=== PATIENT | female | born 1960 | race Caucasian/White ===

== ENCOUNTER → 2016-12-19 | Outpatient (CLI) | payer OTHER ==
--- NOTE | 2016-12-19 15:24 | XR ---
EXAMINATION TYPE: XR hand complete RT DATE OF EXAM: 12/19/2016 3:15 PM CLINICAL HISTORY: Pain first and second fingers with limited range of motion TECHNIQUE: Frontal, lateral and oblique images of the right hand are obtained. COMPARISON: None. FINDINGS: There is no acute fracture/dislocation evident in the right hand. The joint spaces in the right hand appear within normal limits. The overlying soft tissue appears unremarkable. IMPRESSION: There is no acute fracture or dislocation in the right hand. Unremarkable study.
== END ==
LOC: RADXRMAIN 14:48
PROVIDERS: ATTEND Internal Medicine
DX: M79.644 Pain in right finger(s) (principal)

== ENCOUNTER 2017-07-26 07:27 | Day surgery (SDC) | payer OTHER ==
[2017-07-24 15:00] VITALS: BMI 49.0
[~2017-07-26 07:27] MED LIST: LACTATED RINGERS 1,000 ML IV SCH
[2017-07-26 07:38] VITALS: TEMP 97.4
[2017-07-26 07:47] LABS: Glucose,Whole Blood 96 mg/dL (75-99)
[2017-07-26] MEDS ORDERED: PROPOFOL 10 MG/ML 20 ML VIAL IV ONE (07:54)
[2017-07-26] MEDS ORDERED: LACTATED RINGERS 1,000 ML IV ONE (07:54)
--- NOTE | 2017-07-26 07:59 | P.GSHP ---
History of Present Illness H&P Date: 07/26/17 Chief Complaint: epigastric pain, change of bowel habits, constipation this a 57-year-old female referred from Dr. Márquez. Patient presents today for EGD and colonoscopy. She's had issues with epigastric pain and constipation. Past Medical History Past Medical History: Diabetes Mellitus, Eye Disorder, GERD/Reflux, Hypertension , Osteoarthritis (OA) Additional Past Medical History / Comment(s): GLAUCOMA, GASTRIC PARESIS, hx HIATAL HERNIA. CHRONIC BACK PAIN. FREQUENT DIARRHEA, SWELLING RT SIDE OF ABDOMEN. History of Any Multi-Drug Resistant Organisms: None Reported Past Surgical History: Cholecystectomy, Joint Replacement, Tubal Ligation Additional Past Surgical History / Comment(s): ANG FUNDLAPLASTY, ARTHROSCOPY LEFT KNEE, TOTAL LT KNEE(02/2015), MANIPULATION LT KNEE, RT ELBOW WITH SCREW (2013), D&C 07-30-15; EGD 07/31/15 Past Anesthesia/Blood Transfusion Reactions: Motion Sickness, Postoperative Nausea & Vomiting (PONV) Additional Past Anesthesia/Blood Transfusion Reaction / Comment(s): PONV X1. Smoking Status: Former smoker - Past Family History Father Family Medical History: Unable to Obtain Mother Family Medical History: Unable to Obtain Medications and Allergies Home Medications Medication Instructions Recorded Confirmed Type Atenolol 100 mg PO QAM 04/17/14 07/24/17 History Brimonidine Tartrate [Alphagan P 1 drop BOTH EYES BID 04/17/14 07/24/17 History 0.15% Ophth Soln] Insulin Glargine [Lantus] 50 units SQ HS 04/17/14 07/24/17 History Timolol 0.5% Ophth Soln [Timoptic 1 drop BOTH EYES BID 04/17/14 07/24/17 History 0.5% Ophth Soln] Cholecalciferol [Vitamin D3] 5,000 unit PO DAILY 07/24/17 07/24/17 History EPINEPHrine (Auto Inject) [Epipen] 0.3 mg IM ONCE PRN 07/24/17 07/24/17 History Lipase/Protease/Amylase [Creon Dr 1 each PO DAILY 07/24/17 07/24/17 History 12,000 Units Capsule] Lisinopril [Zestril] 5 mg PO QAM 07/24/17 07/24/17 History Victoza 1.2 mg SQ 1400 07/24/17 History glipiZIDE [Glucotrol] 5 mg PO QAM 07/24/17 07/24/17 History metFORMIN HCL 1,000 mg PO BID 07/24/17 07/24/17 History Allergies Allergy/AdvReac Type Severity Reaction Status Date / Time nitrofurantoin Allergy Severe FACE Verified 07/24/17 14:49 [From Macrobid] SWELLING, SEVERE HEADACHE, NUMB LIPS &TONGUE. codeine Allergy Dyspnea Verified 07/24/17 14:49 gluten Allergy CAUSED Verified 07/24/17 14:49 SWELLING IN STOMACH/INTESTINES hydrocodone Allergy CHILLS, Verified 07/24/17 14:49 ABD PAIN, GONZALEZ peanut Allergy CAUSED Verified 07/24/17 14:49 SWELLING IN STOMACH/INTESTINES shellfish derived Allergy Anaphylaxis Verified 07/24/17 14:49 walnut Allergy CAUSED Verified 07/24/17 14:49 SWELLING IN ABD/INTESTINES wheat Allergy SEVERE Verified 07/24/17 14:49 GASTROPARISIS Surgical - Exam Vital Signs Temp Pulse Resp BP Pulse Ox 97.4 F L 89 20 140/85 92 L 07/26/17 07:37 07/26/17 07:37 07/26/17 07:37 07/26/17 07:37 07/26/17 07:37 - General well developed, no distress - Eyes PERRL - ENT normal pinna - Neck no masses - Respiratory normal expansion - Cardiovascular Rhythm: regular - Abdomen Abdomen: soft, non tender Assessment and Plan Assessment: epigastric pain, constipation, change in bowel habits. We'll perform colonoscopy.
--- NOTE | 2017-07-26 08:20 | P.OP ---
Date of Procedure: 07/26/17 Preoperative Diagnosis: epigastric dull pain Constipation. Change in bowel habits Postoperative Diagnosis: gastritis Normal colonoscopy Procedure(s) Performed: EGD Colonoscopy Anesthesia: MAC Surgeon: Terence Hayden Pathology: other (antrum) Condition: stable Disposition: PACU Description of Procedure: the patient's placed on the endoscopy table in the lateral position. She received IV sedation. The gastroscope placed oropharynx and passed in the esophagus and into the stomach. The scope was placed through the pylorus. The first and second portion of the duodenum appeared normal. Scope was then brought back the antrum this. Mildly inflamed. A biopsies performed. Scope was unretroflexed and remainder stomach appeared normal. There is evidence of previous fundal plication wrap. This appeared to be in appropriate position. The GE junction was at 39 cm. The distal esophagus appeared normal. The proximal esophagus appeared normal. Scope was withdrawn for patient. Next digital rectal exam was performed which revealed external hemorrhoids. The possible colonoscope was then placed patient anus passed throughout the entire colon. The ileocecal valve was visualized. The cecum, ascending and transverse colon appeared normal. The descending and sigmoid colon appeared normal. Scope was brought back the rectum and this appeared normal. Scope was withdrawn for patient.
[2017-07-26 08:37] VITALS: RESP 18
[2017-07-26 08:52] VITALS: BP 111/66; PULSE 69
== END 2017-07-26 09:48 | disposition home or self-care (01) ==
LOC: ORWHC2ENDO 07:27
PROVIDERS: ATTEND Surgery
DX: K29.50 Unspecified chronic gastritis without bleeding (principal); E11.9 Type 2 diabetes mellitus without complications; K21.9 Gastro-esophageal reflux disease without esophagitis; I10 Essential (primary) hypertension; M19.90 Unspecified osteoarthritis, unspecified site; Z98.51 Tubal ligation status; Z87.891 Personal history of nicotine dependence; Z79.84 Long term (current) use of oral hypoglycemic drugs; Z79.4 Long term (current) use of insulin; Z79.899 Other long term (current) drug therapy; Z88.1 Allergy status to other antibiotic agents; Z88.5 Allergy status to narcotic agent; Z91.010 Allergy to peanuts; Z91.013 Allergy to seafood; Z91.018 Allergy to other foods
CPT/HCPCS: 88305; 88342; 45378; 43239; J2704

== ENCOUNTER → 2024-11-16 | Outpatient (CLI) | payer OTHER ==
--- NOTE | 2024-11-18 10:48 | MR ---
EXAMINATION TYPE: MR knee RT wo con DATE OF EXAM: 11/16/2024 1:43 PM COMPARISON: None. CLINICAL INDICATION: Female, 64 years old with history of M17.10 UNILATERAL PRIMARY OSTEOARTHRITIS, U NSPECIF; PHH, Rt knee pain TECHNIQUE: Multi planar, multi sequence imaging was performed of the knee including: Triplane proton density fat-saturated images and T1-weighted imaging. No Gadolinium was given. IV Contrast: mL (none if empty) FINDINGS: Medial meniscus: Thickened meniscal body with high PD signal throughout which does not definitive ly extend to the surface. The meniscus is protruding medially displacing the medial collateral ligame nt. Vertical tear to the posterior horn of the medial meniscus.. Medial femorotibial cartilage: Grade-III chondromalacia. Medial collateral ligament: Intact, slightly displaced medially due to meniscal protrusion. Lateral meniscus: Intact, some. Screening of the meniscal body noted. Lateral femorotibial cartilage: Grade-III chondromalacia. Lateral collateral ligament complex: Intact Patellofemoral alignment: Normal Patellofemoral cartilage: Grade-IV chondromalacia worse in the lateral patellar facet with some s ubchondral bony edema noted series 701 image 21 Extensor mechanism: Intact. Joint/bursal fluid: None. Muscles/tendons: The patellar tendon, quadriceps tendon, IT band, pes anserinus tendons, semimembrano doris tendon, popliteus tendon, and biceps femoris tendon are all within normal limits. Bone marrow: Degeneration changes with osteophyte formation of the tibial plateau and femoral con dyles worse in the medial knee. Anterior cruciate ligament: Intact. Posterior cruciate ligament: Intact. Soft tissues: Prepatellar soft tissue edema and small fluid collection measuring 22 x 8 x 29 mm. The IMPRESSION: 1. Medial meniscal posterior horn vertical tear with mucoid degeneration of the body with protrusion medially into the gutter. 2. The MCL/LCL ACL and PCL are intact. 3. Moderate Degeneration changes with cartilage loss worse in the patellofemoral joint and medial kn ee. 4. Prepatellar subcutaneous edema with small fluid collection measuring up to 29 mm. [facility], , 11/18/2024 10:46 AM
== END | disposition home or self-care (01) ==
LOC: RADMRIMAIN 12:32
PROVIDERS: ATTEND Student in an Organized Health Care Education/Training Program
DX: M17.11 Unilateral primary osteoarthritis, right knee (principal); M23.331 Other meniscus derangements, other medial meniscus, right knee

== ENCOUNTER → 2024-12-20 | Outpatient (CLI) | payer OTHER ==
[2024-12-20 09:38] LABS: African American GFR (CKD) >90 (>60 ml/min/1.73 sqM); Blood Urea Nitrogen 20 mg/dL (7-17); Non-African American GFR(CKD) 81 (>60 ml/min/1.73 sqM)
--- NOTE | 2024-12-20 11:56 | CT ---
EXAMINATION TYPE: CT abdomen pelvis w con DATE OF EXAM: 12/20/2024 COMPARISON: CT July 03, 2015 CLINICAL INDICATION: Female, 64 years old with history of R10.13 EPIGASTRIC PAIN, , TECHNIQUE: CT scan of the abdomen and pelvis is performed with IV contrast patient injected with 100 mL of Isovu e 300., (none if empty) Oral contrast used: with Oral Contrast (none if empty) CT DLP: 1480 mGycm, Automated exposure control for dose reduction was used. FINDINGS: LUNG BASES: No significant abnormality is appreciated. LIVER/GB: Gallbladder is not seen and presumed surgically absent. PANCREAS: No significant abnormality is seen. SPLEEN: No significant abnormality is seen. ADRENALS: No significant abnormality is seen. KIDNEYS: Simple appearing thin-walled cysts bilaterally are present. BOWEL: Surgical change at the diaphragmatic hiatus from Jarad fundoplication surgery is now present. There is small to moderate size hiatal hernia now present. Oral contrast reaches the transverse colo n. No abnormal small or large bowel dilatation. UTERUS/ADNEXA: Tubal ligation clips along the periphery of the uterus are redemonstrated.. LYMPH NODES: No greater than 1cm abdominal or pelvic lymph nodes are appreciated. OSSEOUS STRUCTURES: Moderate to severe disc space narrowing with vacuum disc phenomenon at the L3-L4 and L4-L5 levels is seen. OTHER: No significant additional abnormality is seen. IMPRESSION: No significant acute finding is seen to account for patient's clinical symptoms of epigas tric pain. [facility], , 12/20/2024 11:53 AM
== END | disposition home or self-care (01) ==
LOC: RADCTMAIN 08:50
PROVIDERS: ATTEND Student in an Organized Health Care Education/Training Program
DX: K44.9 Diaphragmatic hernia without obstruction or gangrene (principal); E66.01 Morbid (severe) obesity due to excess calories
CPT/HCPCS: 82565; 84520; 74177; 36415; Q9967